=== PATIENT | male | born 1995 | race Two or more races ===

== ENCOUNTER 2017-03-14 19:29 | Emergency (ER) | payer OTHER ==
[~2017-03-14] VITALS: Ht 167.6 cm; Wt 71.2 kg
[2017-03-14 19:32] VITALS: BP 135/79
--- NOTE | 2017-03-14 20:00 | NUR ---
SEEN BY PAULA BLANK FOR EVAL.
[2017-03-14] MEDS ORDERED: SILVER SULFADIAZINE CREAM 25 GM TUBE ONE (20:05)
[2017-03-14] MEDS ORDERED: TDAP [DIPH/PERTUSSIS/TET] 0.5 ML VIAL IM ONE ×2 (20:30→20:38)
== END 2017-03-14 20:57 | disposition home or self-care (01) ==
LOC: ER 19:41
DX: T23.271A Burn of second degree of right wrist, initial encounter (principal); Y27.2XXA Contact with hot fluids, undetermined intent, initial encounter; Y93.89 Activity, other specified; Y92.89 Other specified places as the place of occurrence of the external cause; Y99.8 Other external cause status
CPT/HCPCS: 16020; 90471; 90715; 99284; A4606; Z7610